=== PATIENT | female | born 1950 | race Two or more races ===

== ENCOUNTER 2022-09-17 07:35 | Outpatient (CLI) | payer OTHER | END 2022-09-17 07:38 | disposition home or self-care (01) | LOC: NUCLEAR 07:35 | PROVIDERS: ATTEND Internal Medicine Endocrinology, Diabetes & Metabolism | DX: E05.00 Thyrotoxicosis with diffuse goiter without thyrotoxic crisis or storm (principal) | CPT/HCPCS: 78014; A9528 ==

== ENCOUNTER → 2022-09-18 07:21 | Outpatient (CLI) | payer OTHER | END | disposition home or self-care (01) | LOC: NUCLEAR 07:21 | PROVIDERS: ATTEND Internal Medicine Endocrinology, Diabetes & Metabolism | DX: E05.00 Thyrotoxicosis with diffuse goiter without thyrotoxic crisis or storm (principal) | CPT/HCPCS: 78014; A9528 ==